=== PATIENT | female | born 1985 | race Caucasian/White ===

== ENCOUNTER 2024-10-16 07:37 | Outpatient (RCR) | payer BC, SELFPAY ==
[2024-10-16 09:36] VITALS: BP 90/63; PULSE 99; RESP 18; TEMP 36.5; O2SAT 99
[2024-10-16] MEDS: SODIUM CHLORIDE 0.9 % (FLUSH) 10 ML SYRINGE IVF ×2 (10:00→13:00)
[2024-10-16] MEDS: 0.9 % SODIUM CHLORIDE 500 ML 250 ML IV (10:00)
[2024-10-16 10:02] VITALS: BP 90/63; PULSE 98; RESP 18; TEMP 36.9; O2SAT 98
[2024-10-16 10:34] VITALS: BP 97/67; PULSE 92; RESP 16; TEMP 36.7; O2SAT 98
[2024-10-16 11:06] VITALS: BP 97/68; PULSE 88; RESP 16; TEMP 37.1; O2SAT 99
[2024-10-16 11:26] VITALS: BP 92/63; PULSE 96; RESP 16; TEMP 36.8; O2SAT 100
[2024-10-16 12:45] VITALS: BP 95/67; PULSE 94; RESP 16; TEMP 36.2; O2SAT 99
[2024-10-16] MEDS: HEPARIN 500 UNIT/5 ML SYRINGE IVF (13:00)
--- NOTE | 2024-11-15 12:17 | ONC.NURNOTE ---
Dx: Breast cancer
== END 2025-04-14 23:59 | disposition home or self-care (01) ==
LOC: CCIC 07:37
PROVIDERS: Visit Provider Clinical Nurse Specialist
DX: C50.919 Malignant neoplasm of unspecified site of unspecified female breast (principal)
CPT/HCPCS: 36415; 36430; 86850; 86900; 86901; 86922; J1642; J7030; P9016